=== PATIENT | female | born 1945 | race Caucasian/White ===

== ENCOUNTER → 2017-01-07 | Outpatient (CLI) | payer OTHER ==
[~2017-01-07] MED LIST: GADOBUTROL 10 ML VIAL IVP ONE
[2017-01-07 10:58] LABS: CREATININE 0.9 mg/dL (0.6-1.0); GLOMERULAR FILTRATION RATE > 60
== END ==
LOC: FIMAGING 09:48
PROVIDERS: ATTEND Internal Medicine Hematology & Oncology
DX: Z12.39 Encounter for other screening for malignant neoplasm of breast (principal); Z85.3 Personal history of malignant neoplasm of breast; Z92.3 Personal history of irradiation
CPT/HCPCS: 0159T; A9585; C8908

== ENCOUNTER → 2017-06-02 | Outpatient (CLI) | payer OTHER | LOC: FIMAGING 10:29 | PROVIDERS: ATTEND Internal Medicine | DX: Z12.31 Encounter for screening mammogram for malignant neoplasm of breast (principal) | CPT/HCPCS: G0202 ==

== ENCOUNTER → 2018-06-12 | Outpatient (CLI) | payer OTHER | LOC: FIMAGING 12:55 | PROVIDERS: ATTEND Internal Medicine Hematology & Oncology | DX: Z12.31 Encounter for screening mammogram for malignant neoplasm of breast (principal); Z80.3 Family history of malignant neoplasm of breast ==

== ENCOUNTER 2018-10-05 00:33 | Observation (INO) | payer OTHER ==
[2018-10-05] MEDS ORDERED: NS 500 ML IV ONE (00:38)
--- NOTE | 2018-10-05 00:40 | EDPHY ---
H & P Time Seen by Provider: 10/05/18 00:38 HPI/ROS: HPI CHIEF COMPLAINT: Lightheadedness. HISTORY OF PRESENT ILLNESS: This is a 73-year-old female, presents emergency room feeling lightheaded. Patient reports that she was in her easy chair, she got up out of this chair got lightheaded felt like she was off balance. Stumbled. She denied any foot fall. Denied headache, denies chest pain or shortness of breath. [place] lightheaded when she got up. She denies being sick recently. Denies nausea vomiting or diarrhea, denies chest pain or shortness of breath. She arrives to the emergency room stating that she does feel somewhat better. Past Medical History: Medical history see him for AFib not on anticoagulation, hypertension, macular degeneration, left eye infection Past Surgical History: Left eye enucleation. Social History: Denies drugs alcohol tobacco resides in a private residence. Family History: Noncontributory ROS REVIEW OF SYSTEMS: 10 Systems were reviewed and negative with the exception of the elements mentioned in the history of present illness. Exam Constitutional elderly, nontoxic triage nursing summary reviewed, vital signs reviewed, awake/alert. 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 HENT normal inspection, atraumatic, moist mucus membranes, no epistaxis, neck supple/ no meningismus, no raccoon eyes. Respiratory clear to auscultation bilaterally, normal breath sounds, no respiratory distress, no wheezing. Cardiovascular rate normal, regular rhythm, no murmur, no edema, distal pulses normal. Gastrointestinal soft, non-tender, no rebound, no guarding, normal bowel sounds, no distension, no pulsatile mass. Genitourinary no CVA tenderness. Musculoskeletal no midline vertebral tenderness, full range of motion, no calf swelling, no tenderness of extremities, no meningismus, good pulses, neurovascularly intact. Skin pink, warm, & dry, no rash, skin atraumatic. Neurologic awake, alert and oriented x 3, AAOx3, moves all 4 extremities equally, motor intact, sensory intact, CN II-XII intact, normal cerebellar, normal vision, normal speech. Psychiatric normal mood/affect. Heme/Lymph/Immune no lymphadenopathy. Differential Diagnosis: Includes but is not limited to in a particular order electrolyte disturbance, dehydration, orthostatic hypotension, vasovagal syncope , cardiac arrhythmia, stroke, intracranial bleed Medical Decision Making: Plan for this patient IV establishment full cardiac surgeon, EKG, troponin, electrolytes, CT scan head, chest x-ray, re-evaluate. Gentle IV fluids. Check UA. Re-evaluation: EKG interpretation by me on record in [employer] system. Impression time of EKG 004, AFib rate of 73 without any signs of acute ischemia. CT scan head without contrast negative for acute traumatic injury or bleed or stroke called to me by Dr. Burnett. ED x-ray chest one view: Cardiomegaly present. No failure. 0300AM: Patient re-evaluated this time. Patient has unsteady gait. Fall risk.. She is able to walk but feels lightheaded. Plan for hospital admission. Patient's blood work, EKG, chest x-ray and CT scan reviewed. Patient is appropriate electrolytes. Patient's EKG is AFib without acute ischemia. Chest x-ray shows cardiomegaly but no failure. CT scan of the head shows no bleed. 0301: Patient ambulatory around the emergency room but feels like she is going to fall. She has a unsteady gait but is able to ambulate. 0321AM: The patient ambulated with may around the emergency room. She does states she feels off balance not in 1 particular area. She is able to walk. She has a short shuffling gait. She denies any room spinning sensation. Denies nausea denies vomiting. When I ambulate her she has short shuffling gait however states that she feels off balance. Plan for MRI of the brain due to the symptoms. Plan for hospital admission. I spoke with Timothy Santoyo NP for [facility]. They agree to admit. Admit for Dr. Shultz. Plan for MRI and then admission. Source: Patient, EMS - Medical/Surgical History Hx Cardiac Disease: Yes Other PMH: afib, rheumatoid arthritis, macular degeneration, incontinence, breast CA w/lumpectomy R breast - Social History Smoking Status: Former smoker Constitutional: Initial Vital Signs Temperature (C) 36.4 C 10/05/18 00:35 Heart Rate 72 10/05/18 00:35 Respiratory Rate 16 10/05/18 00:35 Blood Pressure 163/95 H 10/05/18 00:35 O2 Sat (%) 93 10/05/18 00:35 O2 Delivery Mode Room Air Allergies/Adverse Reactions: amoxicillin [Amoxicillin] Allergy (Verified 10/05/18 09:22) Hives diazepam [From Valium] Allergy (Verified 10/05/18 09:22) Other-Enter Comments lisinopril Allergy (Verified 10/05/18 09:22) Cough Home Medications: Medication Instructions Recorded Aspirin [Aspirin 81mg (*)] 81 mg PO DAILY 02/06/10 Digoxin [Lanoxin 125 mcg (RX)] 125 mcg PO DAILY10 03/05/10 LORazepam [Ativan (*)] 0.5 mg PO HS PRN 03/05/10 amLODIPine BESYLATE [Norvasc 5 mg 5 mg PO DAILY 08/09/11 (*)] Losartan Potassium [Cozaar 50 mg 50 mg PO DAILY 08/19/14 (*)] Ascorbic Acid [Vitamin C 500 mg 500 mg PO DAILY 10/05/18 (*)] C/E/Zn/Cu/OM3/DHA/EPA/LUT/ZEAX 1 each PO DAILY 10/05/18 [Preservision Areds 2 Softgel] Carboxymethylcellulose Sodium 1 drop RTEYE QID PRN 10/05/18 [Refresh Tears] Cholecalciferol Vit D3 [Vitamin D3 2,000 units PO DAILY 10/05/18 2000 units tab (OTC)] Cyanocobalamin [Vitamin B12 (*)] 2,000 mcg PO DAILY 10/05/18 Erythromycin Oint 1 krissy LEFTEYE DAILY 10/05/18 Fluorometholone [Fml (*)] 1 drop RTEYE BID 10/05/18 Herbals/Supplements -Info Only 1 ea PO DAILY 10/05/18 Metoprolol Tartrate [Lopressor 50 50 mg PO BID 10/05/18 mg (*)] Multivitamins [Multivitamin (*)] 1 each PO DAILY 10/05/18 [place]-3 Fatty Acids [Fish Oil 1000 1,000 mg PO DAILY 10/05/18 mg (*)] predniSONE 2.5 mg PO Q2D 10/05/18 Medical Decision Making - Data Points Laboratory Results: Laboratory Results 10/05/18 00:37 10/05/18 00:37 Medications Given: Discontinued Medications Amlodipine Besylate (Norvasc) 5 mg PO DAILY ZEYAD Stop: 04/03/19 12:59 Last Admin: 10/05/18 13:19 Dose: 5 mg Ascorbic Acid (Vitamin C) 500 mg PO DAILY ZEYAD Stop: 04/03/19 12:59 Last Admin: 10/05/18 13:19 Dose: 500 mg Aspirin (Aspirin) 81 mg PO DAILY ZEYAD Stop: 04/03/19 12:59 Last Admin: 10/05/18 13:20 Dose: 81 mg Cholecalciferol (Vitamin D) 2,000 units PO DAILY ZEYAD Stop: 04/03/19 12:59 Last Admin: 10/05/18 13:18 Dose: 2,000 units Digoxin (Lanoxin) 125 mcg PO DAILY10 ZEYAD Stop: 04/03/19 12:59 Last Admin: 10/05/18 13:23 Dose: 125 mcg Erythromycin (Erythromycin 0.5%) 1 krissy LEFTEYE DAILY ZEYAD Stop: 11/04/18 13:14 Last Admin: 10/05/18 13:51 Dose: 1 krissy Fluorometholone (Fml) 1 drop RTEYE BID ZEYAD Stop: 04/03/19 12:59 Last Admin: 10/05/18 13:50 Dose: 1 drops Sodium Chloride (Ns) 500 mls @ 1,000 mls/hr IV EDNOW ONE PRN Reason: Protocol Stop: 10/05/18 01:07 Last Admin: 10/05/18 00:55 Dose: 500 mls Losartan Potassium (Cozaar) 50 mg PO DAILY ZEYAD Stop: 04/03/19 12:59 Last Admin: 10/05/18 13:18 Dose: 50 mg Metoprolol Tartrate (Lopressor) 100 mg PO BID ZEYAD Stop: 04/03/19 12:59 Last Admin: 10/05/18 15:12 Dose: Not Given Metoprolol Tartrate (Lopressor) 50 mg PO BID [facility] Stop: 04/03/19 13:44 Last Admin: 10/05/18 13:50 Dose: 50 mg Multivitamins (Tab-A-Ty) 1 each PO DAILY ZEYAD Stop: 04/03/19 12:59 Last Admin: 10/05/18 13:19 Dose: 1 each Multivitamins/Minerals (Preservision Areds2 Formula) 1 each PO DAILY ZEYAD Stop: 04/03/19 12:59 Last Admin: 11/19/18 13:18 Dose: 1 each Tyotc-9-Rbsq Ethyl Esters (Fish Oil) 1,000 mg PO DAILY [facility] Stop: 04/03/19 12:59 Last Admin: 10/05/18 13:18 Dose: 1,000 mg Vitamin B Complex (Vitamin B12) 2,000 mcg PO DAILY [facility] Stop: 04/03/19 12:59 Last Admin: 10/05/18 13:49 Dose: 2,000 mcg Point of Care Test Results: Chemistry 10/05/18 00:41 POC Troponin I 0.00 ng/mL ng/mL (0.00-0.08) Departure - Departure Disposition: [facility] Inpatient Acute Clinical Impression: Lightheaded Condition: Fair
[2018-10-05 00:46] LABS: PLATELET COUNT 282 10^3/uL (150-400)
[2018-10-05 01:03] LABS: INR 1.03 (0.83-1.16); PROTIME(PATIENT) 13.7 SEC (12.0-15.0)
[2018-10-05] MEDS ORDERED: ONDANSETRON DISINTEGRATING 4 MG TAB PO PRN (03:19)
[2018-10-05] MEDS ORDERED: ACETAMINOPHEN 325 MG TAB PO PRN (03:19)
[2018-10-05] MEDS ORDERED: ONDANSETRON 4 MG/2 ML VIAL IVP PRN (03:19)
--- NOTE | 2018-10-05 08:29 | SOAPPROG ---
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 She was recently dx'd with a UTI by Dr. Alfaro who started her on abx this past Friday, though the pt does not recall what abx. She has completed 5 days of the abx and UA is w/o wbc, nitrates, blood in ED. CT head and MRI head were neg for stroke, bleed, or acute changes. Workup has been grossly normal, though pt continues to experience the "off" feeling. She was admitted to obs for monitoring. Plan: 1. Lightheadedness- has not resolved yet this morning, workup grossly normal. Will send urine for culture since she was recently dx'd with UTI and hasn't quite finished course of abx. UA was negative, however. Vitals stable, labs grossly NL. BNP elevated though this is not very high for her-typically up towards 2-4000. CT and MRI neg. 2. Afib- vitals stable, rate controlled. Unable to be on anticoag due to amyloidosis. 3. Anxiety- mildly anxious this AM as she does not feel at baseline and is unsure why she feels this way. Discussed that we should probably avoid benzos at this time which could increase her lightheadedness/dizziness/"off" feeling. Pt agrees 4. CAD- currently w/o sx of ACS, trop neg. 5. HTN- continue home meds and monitor. 6. Dispo- will monitor through the AM and if feeling better this afternoon can go home. 10/05/18 08:33 Subjective: Wesley is resting in bed eating breakfast. She says she still feels somewhat lightheaded. Unsure why. Tired as she didn't sleep at all last night. Objective: Vital Signs Temp Pulse Resp BP Pulse Ox 36.4 C 87 20 151/97 H 90 L 10/05/18 07:46 10/05/18 07:46 10/05/18 07:46 10/05/18 07:46 10/05/18 07:46 10/04/18 10/05/18 10/06/18 05:59 05:59 05:59 Intake Total 620 Balance 620 PT 13.7 SEC (12.0-15.0) 10/05/18 00:37 INR 1.03 (0.83-1.16) 10/05/18 00:37 Gen- alert, oriented, vitals stable Head- normocephalic, atraumatic EENT- Glass eye to L eye, R eye NL Resp- faint expiratory wheezing, no rhonchi, rales CV- irregularly irregular rhythm, rate controlled, no murmurs, rubs, gallops Abd- SNT, nondistended Extremities- 1+ peripheral edema Skin- warm and dry Neuro- grossly intact ICD10 Worksheet Patient Problems: Problems Problem Status Onset Lightheaded Acute
--- NOTE | 2018-10-05 10:02 | GHP ---
DATE OF ADMISSION: 10/05/2018 HISTORY OF PRESENT ILLNESS: The patient is a 73-year-old female who presented to the emergency depar tment last evening complaining of lightheadedness and a "drunk feeling." She has not taken any new m edications, has not consumed any alcohol or drugs that she admits to, and cannot think of a clear exp lanation as to her symptoms. On evaluation in the emergency department, her vitals were stable. Lab s were grossly normal. Patient was in atrial fibrillation. The rate was controlled. CT of her head and MRI of her head were both negative for bleed or acute changes. Urinalysis was negative. Digoxi n level was normal. Chest x-ray was without acute changes. Despite the grossly normal workup, the p atient remained unsteady on her feet and still felt lightheaded; so she was admitted to observation. After discussing with the patient, she has recently been diagnosed with a urinary tract infection by Dr. Alfaro, who started her on antibiotic (but she cannot recall which antibiotic) on this past Monda y. The patient says that she has completed 5 days of the antibiotic. Does not recall how many more days she has. Again, her UA in the ED was negative. 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 PAST SURGICAL HISTORY: A D and C in 2011 for postmenopausal bleeding, left knee arthroscopy, and samia ast cancer surgery. SOCIAL HISTORY: Current nonsmoker. Does not consume alcohol. Currently and lives at home independently. FAMILY MEDICAL HISTORY: Father at 65 years old. Had hypertension. from a CVA. Goldie jay had AFib. Heavy ETOH use. Also had stroke. Mother is . Had myopia, cataract, hyperten nina, breast cancer. of a stroke. \\ ALLERGIES: Penicillin, lisinopril, and Valium. REVIEW OF SYSTEMS: GENERAL: Denies fever, chills, headache. Endorses fatigue, though unable to sle ep. Endorses dizziness, lightheadedness. CV: Endorses palpitations; though this is her baseline wi th her atrial fibrillation. Denies chest pain, shortness of breath. RESPIRATORY: Denies cough, whe heidi, shortness of breath. GI: Denies nausea, vomiting, diarrhea, acute change in bowel patterns. G U: Denies dysuria. Endorses urinary incontinence, which is baseline. Denied urinary frequency. EX TREMITIES: Endorses minimal swelling to bilateral ankles, which is normal for patient. NEURO: Brendan es numbness, tingling, weakness in extremities, gait changes, speech changes, change in mentation. PHYSICAL EXAMINATION: GENERAL: Alert and oriented. VITAL SIGNS: Stable. HEAD: Normocephalic, at raumatic. RESPIRATORY: Lungs clear to auscultation bilaterally. CV: Irregularly irregular rate an d rhythm. No murmurs, rubs, gallops. Rate controlled. ABDOMEN: Soft, nontender, nondistended. Po sitive bowel sounds. EXTREMITIES: 1+ peripheral edema. SKIN: Warm and dry. NEURO: Grossly intac t. No acute deficits. ASSESSMENT AND PLAN: 1. Lightheadedness. We will admit for observation. Workup has been grossly negative thus far. Sen ding urine for culture as she was recently diagnosed with a urinary tract infection and has not quite finished course of antibiotics. 2. Atrial fibrillation, currently rate controlled. Vitals stable. Unable to be on anticoagulation due to amyloidosis. 3. Anxiety. Mildly anxious at baseline but currently stable. Avoiding benzodiazepines given curren t symptoms. 4. Hypertension. Continue home meds and monitor. Currently stable. DISPOSITION: Monitor through the day and discharge once she is feeling back to baseline. /[id number]/MODL
[2018-10-05] MEDS ORDERED: LORazepam 0.5 MG TAB PO PRN (12:46)
[2018-10-05] MEDS ORDERED: CARBOXYMETHYLCELLULOSE SODIUM RTEYE PRN (12:46)
[2018-10-05] MEDS ORDERED: LOSARTAN POTASSIUM 50 MG TAB PO SCH (13:00)
[2018-10-05] MEDS ORDERED: Herbals/Supplements -Info Only PO SCH (13:00)
[2018-10-05] MEDS ORDERED: OMEGA-3 FATTY ACIDS 1,000 MG CAP PO SCH (13:00)
[2018-10-05] MEDS ORDERED: CYANO/VITAMIN B12 1000 MCG TAB PO SCH (13:00)
[2018-10-05] MEDS ORDERED: FLUOROMETHOLONE 5 ML OPHT.BTL RTEYE SCH (13:00)
[2018-10-05] MEDS ORDERED: METOPROLOL TARTRATE 100 MG TAB PO SCH (13:00)
[2018-10-05] MEDS ORDERED: MULTIVITAMINS 1 EACH TAB PO SCH (13:00)
[2018-10-05] MEDS ORDERED: CHOLECALCIFEROL VIT D3 2,000 UNITS TAB/CAP PO SCH (13:00)
[2018-10-05] MEDS ORDERED: DIGOXIN 125 MCG TAB PO SCH (13:00)
[2018-10-05] MEDS ORDERED: amLODIPine BESYLATE 5 MG TAB PO SCH (13:00)
[2018-10-05] MEDS ORDERED: ASCORBIC ACID 500 MG TAB PO SCH (13:00)
[2018-10-05] MEDS ORDERED: ASPIRIN 81 MG CHEWABLE TAB PO SCH (13:00)
[2018-10-05] MEDS ORDERED: PRESERVISION AREDS2 FORMULA EYE VIT 1 EACH PO SCH (13:00)
[2018-10-05] MEDS ORDERED: ERYTHROMYCIN 0.5% 1 GM OPHT.OINT LEFTEYE SCH (13:15)
--- NOTE | 2018-10-05 13:26 | PDIAF ---
- Diagnosis Diagnosis: Lightheadedness Code Status: Full Code - Medication Management Discharge Medications: electronically signed and located in the Home Medication List. - Orders Diet Recommendation: no restrictions on diet Diet Texture: Regular Texture Diet - Follow Up Care Current Providers and Referrals: Patient,NotPresent [Unknown] - As per Instructions (Please schedule a follow up at [facility] next week.)
[2018-10-05] MEDS ORDERED: METOPROLOL TARTRATE 50 MG TAB PO SCH (13:45)
[2018-10-05 14:32] VITALS: BP 154/105
--- NOTE | 2018-10-05 14:40 | PDIAF ---
- Diagnosis Diagnosis: Lightheadedness Code Status: Full Code - Medication Management Discharge Medications: electronically signed and located in the Home Medication List. - Orders Services needed: Home Care, Registered Nurse, Certified Testing Engineer, Physical Therapy, Occupational Therapy Home Care Face to Face: I certify that this patient was under my care and that I had the required xyix-by-pteg encounter meeting the encounter requirements on the discharge day. My findings support the fact that the patient is homebound as defined in Home Care Face to Face Continued: CMS Chapter 7 Medicare Benefits Manual 30.1.1 , The condition of the patient is such that there exists a normal inability to leave home and consequently, leaving home would require a considerable and taxing effort. Diet Recommendation: no restrictions on diet Diet Texture: Regular Texture Diet - Follow Up Care Current Providers and Referrals: Michael Medina PA [Physician [employer] Manager Architect] - Carissa Shultz MD [Primary Care Provider] - Patient,NotPresent [Unknown] - As per Instructions (Please schedule a follow up at [facility] next week.)
--- NOTE | 2018-10-05 15:19 | ASMTCMCOM ---
CM Note CM Note Notes: Pt is a 73 y/o female admitted for feeling lightheaded. Pt is being discharged today. CM met w/ pt for dispo planning. Pt would like a HC RN. CM spoke to DOMINIC Chen. Pt has a friend picking her up. Referral sent to [facility]. [facility] is able to accept. CM available for changes. 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
--- NOTE | 2018-10-05 15:22 | ASDISCHSUM ---
Discharge Information Plan Status:Home with Home Health Medically Cleared to Leave:10/04/2018 Discharge Date:10/05/2018 03:10 PM CM D/C Disposition: ADT D/C Disposition:Home Health Service Projected Discharge Date:10/05/2018 11:00 AM Transportation at D/C: Discharge Delay Reason: Follow-Up Date:10/05/2018 11:00 AM Discharge Slot: Final Diagnosis: Placement Information Referral Type:*Home Health Care Services Referral ID:[id number] Provider Name:Zonia Holland Address 1:[address] [place] Phone Number: Address 2: Fax Number: City:[place] Selection Factors: State:[place] Patient Contact Information Contact Name:ED Relationship:Friend Address: City: [facility] Phone: [facility] Code: Email: Financial Information Financial Class:Medicare Primary Plan Desc:MEDICARE OUTPATIENT Primary Plan Number:[id number] Secondary Plan Desc:FRANCES LEDEZMA PPO Secondary Plan Number:[id number] Assessment Information LACE LACE Length of stay for Answers: Less than 1 day current admission Acuity / Level of Answers: No Care: Did the patient have an inpatient admission? Comorbidities - select Answers: Cerebrovascular disease all that apply (CVA, TIA, aneurysms, vasc ular dementia) Coronary Artery Disease Other Notes: AFib; HTN; Hx of breast cancer # of Emergency department Answers: 1-2 visits in the last 6 months Social determinants Answers: Mental health diagnosis (anxiety, depression, pers onality disorders, etc.) Score: 8 Date Signed: 10/05/2018 03:20 PM Electronically Signed By:ALEX Lowry [facility] CM Progress Note CM Note CM Note Notes: Pt is a 73 y/o female admitted for feeling lightheaded. Pt is being discharged today. CM met w/ pt for dispo planning. Pt would like a HC RN. CM spoke to DOMINIC Chen. Pt has a friend picking her up. Referral sent to [facility]. [facility] is able to accept. CM available for changes. 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
--- NOTE | 2018-10-05 15:39 | GDS ---
ADMITTING DIAGNOSIS: Lightheadedness. This is a 73-year-old female who was brought to the Emergency Department complaining of lightheadedness and just feeling generally unstable. Her workup was grossly negative. This included a urinalysis and a head CT and MRI of the head sorry. She does have a history of atr ial fibrillation for which she could not be on anticoagulation due to amyloid deposits in the brain. Therefore, there was initially some concern of stroke, particularly a cerebellar stroke given her ga it instability, but as mentioned, the MRI was negative for stroke. The patient's vitals remained sta ble. She was slightly hypertensive but this improved after she was given her normal medications. Jessica matson began to feel less symptomatic as the day progressed, and will be discharged home this afternoon wi th followup in the office with her primary care provider next week, sooner if she experiences any fur ther symptoms. DISCHARGE MEDICATIONS: Aspirin 81 mg p.o. daily. Digoxin 125 mcg p.o. daily. Lorazepam 0.5 mg p.o. at bedtime p.r.n. insomnia. Cozaar 50 mg p.o. daily. Fish oil 1000 mg p.o. daily, multivitamin 1 t ablet daily, vitamin D3 2000 units p.o. daily, vitamin B12 2000 mcg p.o. daily. PreserVision soft ge l 1 tablet p.o. daily. Erythromycin ointment 1 application to the left eye daily, fluorometholone 1 drop to the right eye twice daily, Refresh Tears 1 drop to the right eye four times daily p.r.n., met oprolol 50 mg p.o. twice daily, prednisone 2.5 mg p.o. every 2 days. The patient will plan to continue and finish her nitrofurantoin 100 mg p.o. twice daily that was pres cribed by Dr. Alfaro this past week. /[id number]/MODL
--- NOTE | 2018-10-07 07:06 | CPEKG ---
Test Reason : OPEN Blood Pressure : / mmHG Vent. Rate : 073 BPM Atrial Rate : 139 BPM P-R Int : 067 ms QRS Dur : 077 ms QT Int : 378 ms P-R-T Axes : 000 006 027 degrees QTc Int : 417 ms Atrial fibrillation Confirmed by Candido Kruse ([id number]) on 10/07/2018 7:05:16 AM Referred By: Confirmed By:Candido Kruse
== END 2018-10-05 15:10 | disposition home health service (06) ==
LOC: EDBD → EDUNIT# → F3E 06:15
PROVIDERS: ADMIT Internal Medicine; ATTEND Internal Medicine
DX: R42 Dizziness and giddiness (principal); I48.91 Unspecified atrial fibrillation; I68.0 Cerebral amyloid angiopathy; I10 Essential (primary) hypertension; E78.5 Hyperlipidemia, unspecified; E86.9 Volume depletion, unspecified; F41.9 Anxiety disorder, unspecified; F32.9 Major depressive disorder, single episode, unspecified; Z85.3 Personal history of malignant neoplasm of breast; Z86.73 Personal history of transient ischemic attack (TIA), and cerebral infarction without residual deficits
CPT/HCPCS: 70450; 70551; 71045; 93005; 99285; G0378; 84484-PO